=== PATIENT | female | born 1965 | race Caucasian/White ===

== ENCOUNTER 2025-01-10 13:19 | Outpatient (CLI) | payer BC | END 2025-01-10 13:20 | disposition home or self-care (01) | LOC: CSHMAMMO 13:19 | PROVIDERS: ATTEND Internal Medicine Hematology & Oncology | DX: Z08 Encounter for follow-up examination after completed treatment for malignant neoplasm (principal); Z85.3 Personal history of malignant neoplasm of breast; Z14.8 Genetic carrier of other disease; D51.8 Other vitamin B12 deficiency anemias | CPT/HCPCS: 77066; G0279 ==